=== PATIENT | female | born 1980 | race American Indian/Alaskan Native ===

== ENCOUNTER 2021-08-10 18:55 | Emergency (ER) | payer BC, OTHER ==
[2021-08-10 19:17] VITALS: BP 134/67
[2021-08-10 21:02] LABS: Hemoglobin 14.6 gm/dl (10.1-14.3); Mean Corpuscular HGB Conc 33 % (30-34); Mean Corpuscular Volume 98 fl (79-97); Platelet Count 259 K/mm3 (140-440); Red Blood Count 4.51 M/mm3 (3.65-5.03); Red Cell Distribution Width 12.7 % (13.2-15.2)
[2021-08-10 21:17] LABS: Alanine Aminotransferase 11 units/L (7-56); Albumin 4.2 g/dL (3.9-5); BUN/Creatinine Ratio 12; Blood Urea Nitrogen 12 mg/dL (7-17); Calcium 9.2 mg/dL (8.4-10.2); Hemolysis Index 31
[2021-08-10 21:37] LABS: Basophils # (Auto) 0.1 K/mm3 (0.0-0.1); Eosinophils # (Auto) 0.2 K/mm3 (0.0-0.4); Eosinophils % (Auto) 3.4 % (0.0-4.3); Lymphocytes # (Auto) 2.3 K/mm3 (1.2-5.4); Lymphocytes % (Auto) 30.4 % (13.4-35.0); Monocytes # (Auto) 0.7 K/mm3 (0.0-0.8); Monocytes % (Auto) 9.7 % (0.0-7.3)
[2021-08-11] MEDS ORDERED: MORPHINE 4 MG/1 ML INJ IV ONE (00:33)
[2021-08-11] MEDS ORDERED: ONDANSETRON 4 MG/2 ML INJ IV ONE (00:33)
[2021-08-11] MEDS ORDERED: FAMOTIDINE 20 MG/2 ML INJ IV ONE (00:34)
[2021-08-11 01:27] LABS: Bilirubin,Urine NEG (Negative); Blood,Urine NEG (Negative); Color,Urine Yellow (Yellow); Mucus,Urine FEW /HPF; Protein,Urine <15 mg/dL mg/dL (Negative); Urobilinogen,Urine < 2.0 mg/dL (<2.0); WBC,Urine < 1.0 /HPF (0.0-6.0)
--- NOTE | 2021-08-11 02:36 | Cat Scan Report ---
. CT ABDOMEN AND PELVIS WITH CONTRAST INDICATION: ABDOMINAL PAIN. TECHNIQUE: Axial CT images were obtained through the abdomen and pelvis after 100 cc IV contrast. All CT scans at this location are performed using CT dose reduction for ALARA by means of automated exposure contr ol. COMPARISON: None available. FINDINGS: LOWER CHEST: No significant abnormality. LIVER: No significant abnormality. GALLBLADDER: No significant abnormality. BILE DUCTS: No significant abnormality. PANCREAS: No significant abnormality. SPLEEN: No significant abnormality. ADRENALS: No significant abnormality. RIGHT KIDNEY and URETER: No significant abnormality. LEFT KIDNEY and URETER: Simple 2.4 cm cyst. STOMACH and SMALL BOWEL: Fluid-filled nondilated loops of small bowel. COLON: No significant abnormality. APPENDIX: No significant abnormality. PERITONEUM: No free fluid. No free air. No fluid collection. LYMPH NODES: No significant adenopathy. AORTA and ARTERIES: No significant abnormality. IVC and VEINS: No significant abnormality. URINARY BLADDER: No significant abnormality. REPRODUCTIVE ORGANS: No significant abnormality. ADDITIONAL FINDINGS: None. SKELETAL SYSTEM: No significant abnormality. IMPRESSION: 1. Probable viral gastroenteritis with fluid-filled nondilated loops of small bowel. Signer Name: Stephen Du MD Signed: 08/11/2021 2:32 AM Workstation Name: [id number]
--- NOTE | 2021-08-11 02:46 | Emergency Department Report ---
ED Abdominal Pain HPI - General Chief Complaint: Abdominal Pain Stated Complaint: ABD PAIN Source: patient Mode of arrival: Ambulatory Limitations: No Limitations - History of Present Illness Initial Comments: Patient is a 40-year-old -[place] female with no past medical history presents to the ED with complaint of acute onset persistent intermittent nausea and vomiting and diarrhea with diffuse abdominal pain that radiates from the upper abdomen to the lower abdomen for the last 1 week. Patient states that anytime she eats or drinks anything she is unable to keep down because of nausea and that the abdominal pain gets worse. Patient states that her diarrhea has also been persistent. Patient states that no one else at home is centimeter symptoms. Patient denies fever, chills, dizziness, syncope, chest pain, shortness of breath, dysuria, urinary frequency and urgency, cough, sore throat, headache, vaginal bleeding or vaginal discharge. MD Complaint: abdominal pain, other (Nausea and diarrhea) -: Sudden, week(s) (1) Location: diffuse Radiation: none Migration to: no migration Severity: severe Severity scale (0 -10): 8 Quality: cramping, sharp Consistency: constant Improves With: nothing Worsens With: eating, vomiting Context: possible food poisoning Associated Symptoms: denies other symptoms, nausea, diarrhea. denies: vomiting, chills, hematemesis, hematochezia, melena, hematuria - Related Data Previous Rx's Medication Instructions Recorded Last Taken Type Dicyclomine [Bentyl] 20 mg PO Q6H PRN #30 tablet 08/11/21 Unknown Rx Famotidine [Pepcid] 20 mg PO BID #60 tablet 08/11/21 Unknown Rx Ondansetron [Zofran Odt] 4 mg PO Q8HR PRN #20 tab.rapdis 08/11/21 Unknown Rx Allergies Allergy/AdvReac Type Severity Reaction Status Date / Time bacitracin Allergy Unknown Verified 08/10/21 19:23 [From Neosporin ([id number])] cephalexin Allergy Unknown Verified 08/10/21 19:22 citalopram Allergy Unknown Verified 08/10/21 19:23 neomycin Allergy Unknown Verified 08/10/21 19:23 [From Neosporin ([id number])] Penicillins Allergy Unknown Verified 08/10/21 19:23 polymyxin B Allergy Unknown Verified 08/10/21 19:23 [From Neosporin ([id number])] risperidone [From Risperdal] Allergy Unknown Verified 08/10/21 19:23 ED Review of Systems ROS: Stated complaint: ABD PAIN Other details as noted in HPI Constitutional: denies: chills, fever Eyes: denies: eye pain, eye discharge, vision change ENT: denies: ear pain, throat pain Respiratory: denies: cough, shortness of breath, wheezing Cardiovascular: denies: chest pain, palpitations Endocrine: no symptoms reported Gastrointestinal: abdominal pain, nausea, vomiting, diarrhea Genitourinary: denies: urgency, dysuria, discharge Musculoskeletal: denies: back pain, joint swelling, arthralgia Skin: denies: rash, lesions Neurological: denies: headache, weakness, paresthesias Psychiatric: denies: anxiety, depression Hematological/Lymphatic: denies: easy bleeding, easy bruising ED Past Medical Hx - Medications Home Medications: Home Medications Medication Instructions Recorded Confirmed Last Taken Type Dicyclomine [Bentyl] 20 mg PO Q6H PRN #30 tablet 08/11/21 Unknown Rx Famotidine [Pepcid] 20 mg PO BID #60 tablet 08/11/21 Unknown Rx Ondansetron [Zofran Odt] 4 mg PO Q8HR PRN #20 tab.rapdis 08/11/21 Unknown Rx ED Physical Exam - General Limitations: No Limitations General appearance: alert, in no apparent distress - Head Head exam: Present: atraumatic, normocephalic, normal inspection - Eye Eye exam: Present: normal appearance, PERRL, EOMI Pupils: Present: normal accommodation - ENT ENT exam: Present: normal exam, normal orophraynx, mucous membranes moist, TM's normal bilaterally, normal external ear exam - Neck Neck exam: Present: normal inspection, full ROM - Respiratory Respiratory exam: Present: normal lung sounds bilaterally. Absent: respiratory distress, wheezes, rales, rhonchi, stridor, chest wall tenderness, accessory muscle use, decreased breath sounds, prolonged expiratory, other - Cardiovascular Cardiovascular Exam: Present: regular rate, normal rhythm, normal heart sounds. Absent: systolic murmur, diastolic murmur, rubs, gallop - GI/Abdominal GI/Abdominal exam: Present: soft, tenderness (Palpable diffuse lower abdominal tenderness), normal bowel sounds. Absent: distended, hyperactive bowel sounds, hypoactive bowel sounds, mass - Extremities Exam Extremities exam: Present: normal inspection, full ROM, normal capillary refill - Back Exam Back exam: Present: normal inspection, full ROM. Absent: tenderness, CVA tenderness (R), CVA tenderness (L), muscle spasm, paraspinal tenderness, vertebral tenderness - Neurological Exam Neurological exam: Present: alert, oriented X3, CN II-XII intact, normal gait, reflexes normal - Psychiatric Psychiatric exam: Present: normal affect, normal mood - Skin Skin exam: Present: warm, dry, intact, normal color. Absent: rash ED Course Vital Signs 08/10/21 19:01 Temperature 98.1 F Pulse Rate 89 Respiratory 19 Rate Blood Pressure 134/67 O2 Sat by Pulse 96 Oximetry ED Medical Decision Making - Lab Data Result diagrams: 08/10/21 20:25 08/10/21 20:25 - Radiology Data Radiology results: report reviewed, [place] [address] Cat Scan Report Signed Patient: JERO SINGLETARY MR#: [id number] : 1980 Acct:[id number] Age/Sex: 40 / F ADM Date: 08/10/21 Loc: ED Attending Dr: Ordering Physician: SEAN PARK Date of Service: 08/11/21 Procedure(s): CT abdomen pelvis w con Accession Number(s): [id number] cc: SEAN PARK . CT ABDOMEN AND PELVIS WITH CONTRAST INDICATION: ABDOMINAL PAIN. TECHNIQUE: Axial CT images were obtained through the abdomen and pelvis after 100 cc IV contrast. All CT scans at this location are performed using CT dose reduction for ALARA by means of automated exposure control. COMPARISON: None available. FINDINGS: LOWER CHEST: No significant abnormality. LIVER: No significant abnormality. GALLBLADDER: No significant abnormality. BILE DUCTS: No significant abnormality. PANCREAS: No significant abnormality. SPLEEN: No significant abnormality. ADRENALS: No significant abnormality. RIGHT KIDNEY and URETER: No significant abnormality. LEFT KIDNEY and URETER: Simple 2.4 cm cyst. STOMACH and SMALL BOWEL: Fluid-filled nondilated loops of small bowel. COLON: No significant abnormality. APPENDIX: No significant abnormality. PERITONEUM: No free fluid. No free air. No fluid collection. LYMPH NODES: No significant adenopathy. AORTA and ARTERIES: No significant abnormality. IVC and VEINS: No significant abnormality. URINARY BLADDER: No significant abnormality. REPRODUCTIVE ORGANS: No significant abnormality. ADDITIONAL FINDINGS: None. SKELETAL SYSTEM: No significant abnormality. IMPRESSION: 1. Probable viral gastroenteritis with fluid-filled nondilated loops of small bowel. Signer Name: Stephen Du MD Signed: 08/11/2021 2:32 AM Workstation Name: [id number] Transcribed By: TL Dictated By: Stephen Du MD Electronically Authenticated By: Stephen Du MD Signed Date/Time: 08/11/21231 DD/ 0 TD/TT: - Medical Decision Making This is a 40-year-old -[place] female with no past medical history presents to the ED with complaint of acute onset persistent intermittent nausea and vomiting and diarrhea with diffuse abdominal pain that radiates from the upper abdomen to the lower abdomen for the last 1 week. Patient states that anytime she eats or drinks anything she is unable to keep down because of nausea and that the abdominal pain gets worse. Patient states that her diarrhea has also been persistent. Patient states that no one else at home is centimeter symptoms. In the ED, patient is alert and oriented x3 and is not in any distress. Patient is hemodynamically stable. Patient was treated for pain, also given antiemetics and antacids in the ED. Lab test results were reviewed and are all nonactionable. Abdomen pelvis CT scan with IV contrast showed probable viral gastroenteritis with fluid-filled nondilated loops of small bowel. On reevaluation, patient felt better, the abdominal pain is well controlled medication. Patient has not had any nausea or vomiting while in the ED. Patient symptoms are likely viral in etiology. Patient was therefore discharged home on medications and advised to maintain a clear liquid diet for 12 to 24 hours, and to drink plenty of fluids, and follow-up with her primary care physician in 5 to 7 days for reevaluation. Patient was advised return to the ED immediately if symptoms get worse. - Differential Diagnosis Viral gastroenteritis; UTI; pancreatitis; appendicitis; GERD; gastritis; Critical care attestation.: If time is entered above; I have spent that time in minutes in the direct care of this critically ill patient, excluding procedure time. ED Disposition Clinical Impression: Abdominal pain in female patient, Nausea, vomiting and diarrhea, Viral gastroenteritis Disposition: HOME / SELF CARE / HOMELESS Is pt being admited?: No Does the pt Need Aspirin: No Condition: Stable Instructions: Viral Gastroenteritis, Adult, [id number], Nausea and Vomiting, Adult, [id number], Abdominal Pain, Adult, [id number], Abdominal Pain (ED) Additional Instructions: All lab test results were reviewed and are all nonactionable. Abdomen pelvis CT scan with IV contrast showed probable viral gastroenteritis with fluid-filled nondilated loops of small bowel. Therefore maintain a clear liquid diet for 12 to 24 hours, drink plenty of fluids, take medication as advised, follow-up with your primary care physician in 7 to 10 days for reevaluation. Return to the ED immediately if symptoms get worse. Prescriptions: Dicyclomine [Bentyl] 20 mg PO Q6H PRN #30 tablet PRN Reason: Abdominal pain Famotidine [Pepcid] 20 mg PO BID #60 tablet Ondansetron [Zofran Odt] 4 mg PO Q8HR PRN #20 tab.rapdis PRN Reason: Nausea Referrals: GREGG VIVAS MD [Primary Care Provider] - 3-5 Days Time of Disposition: 02:45 Print Language: CYMRAES
== END 2021-08-11 03:24 | disposition home or self-care (01) ==
LOC: ED 18:55
DX: R10.9 Unspecified abdominal pain (principal); A08.4 Viral intestinal infection, unspecified; R11.2 Nausea with vomiting, unspecified; Z88.6 Allergy status to analgesic agent; Z88.1 Allergy status to other antibiotic agents; Z88.3 Allergy status to other anti-infective agents; Z88.0 Allergy status to penicillin; Z91.09 Other allergy status, other than to drugs and biological substances
CPT/HCPCS: 36415; 74177; 80053; 81001; 85025; 96374; 96375; 99284; J2270; J2405; J3490; Q9967